=== PATIENT | male | born 1940 | race Caucasian/White ===

== ENCOUNTER 2020-06-29 16:17 | Inpatient (IN) | payer MEDICARE ==
[~2020-06-29] VITALS: Ht 180.3 cm; Wt 95.3 kg
[2020-06-29] MEDS ORDERED: DILTIAZEM HCL 5 MG/ML 5 ML VIAL IV STA ×2 (16:33→16:40)
[2020-06-29] MEDS ORDERED: DILTIAZEM HCL VIAL 5 ML ONE (16:39)
[2020-06-29] MEDS ORDERED: SODIUM CHLORIDE 0.9% 1000ML 1,000 ML ONE (16:40)
[2020-06-29] MEDS ORDERED: SODIUM CHLORIDE 0.9% 1000ML 1,000 ML IV ONE (16:45)
[2020-06-29] MEDS ORDERED: ASPIRIN 81 MG CHEW TAB PO ONE (16:45)
[2020-06-29 16:59] LABS: BASOPHILS # (AUTO) 0.1 (0.0-0.1); BASOPHILS % 0.9 % (0.0-1.0); EOSINOPHILS # (AUTO) 0.1 (0.0-0.4); EOSINOPHILS % 1.7 % (0.0-6.0); HEMATOCRIT 42.6 % (38.2-49.6); HEMOGLOBIN 13.7 g/dL (14.0-18.0); LYMPHOCYTES # (AUTO) 1.8 (1.0-3.2); MEAN CORPUSCULAR HEMOGLOBIN 26.4 pg (28-32); MEAN CORPUSCULAR HGB CONC 32.2 g/dL (31-35); MEAN CORPUSCULAR VOLUME 82.2 fL (81-99); MONOCYTES # (AUTO) 0.5 (0.2-0.8); MONOCYTES % 9.1 % (4.4-11.3); NEUTROPHILS % 54.9 % (38.7-80.0); PLATELET COUNT 277 x10e3/uL (140-360); RED BLOOD COUNT 5.18 x10e6/uL (4.3-5.7); RED CELL DISTRIBUTION WIDTH 14.4 % (11.7-14.4)
[2020-06-29 17:04] LABS: INR 1.15; PROTHROMBIN TIME 15.5 seconds (11.9-14.5)
[2020-06-29 17:14] LABS: ALBUMIN 4.1 g/dL (3.5-5.0); ALBUMIN/GLOBULIN RATIO 1.1 (0.8-2.0); ANION GAP 14.1 mmol/L (8-16); CALCIUM 9.3 mg/dL (8.4-10.2); CREATININE, SERUM 1.29 mg/dL (0.72-1.25); POTASSIUM 4.1 mmol/L (3.5-5.1)
[2020-06-29] MEDS ORDERED: RIVAROXABAN 20 MG TABLET PO SCH (17:15)
[2020-06-29] MEDS ORDERED: METOPROLOL TARTRATE INJ 1 MG/ML VIAL IV ONE (17:15)
[2020-06-29 17:20] LABS: CREATINE KINASE MB 2.4 ng/mL (0-5.0)
[2020-06-29] MEDS: METOPROLOL TARTRATE 50 MG TAB PO SCH (17:22)
[2020-06-29] MEDS ORDERED: ONDANSETRON HCL INJ 2MG/ML 2ML 2 MG/ML VIAL IV PRN (17:45)
[2020-06-29 21:15] LABS: CLARITY,URINE SL CLOUDY (CLEAR); COLOR,URINE YELLOW (YELLOW); KETONES,URINE NEGATIVE (NEGATIVE); LEUKOCYTE ESTERASE ,URINE NEGATIVE (NEGATIVE); NITRITE,URINE NEGATIVE (NEGATIVE); PROTEIN,URINE DIPSTICK NEGATIVE (NEGATIVE); URINE UROBILINOGEN 0.2 mg/dL (0.2 - 1)
[2020-06-29 22:40] VITALS: BP 135/97
[2020-06-29 23:27] VITALS: BP 135/97
[2020-06-30] VITALS (8 sets, daily range): BP systolic 125–148; BP diastolic 83–105
[2020-06-30] MEDS ORDERED: METOPROLOL SUCC25 MG PO (00:20)
[2020-06-30] MEDS ORDERED: SIMVASTATIN20 MG PO (00:20)
[2020-06-30] MEDS ORDERED: ISOSORBIDE MONO30 MG PO (00:20)
[2020-06-30] MEDS ORDERED: FISH OIL 500 M1 EAC1 PO (00:20)
[2020-06-30] MEDS ORDERED: CLOBETASOL PROP15 G1 TOP (00:21)
[2020-06-30] MEDS ORDERED: PROTONIX20 MG PO (00:21)
[2020-06-30 01:15] LABS: CREATINE KINASE MB 1.4 ng/mL (0-5.0)
[2020-06-30 06:35] LABS: CHOL/HDL RATIO 3.2 (3.9-4.7)
[2020-06-30 07:04] LABS: CREATINE KINASE MB 1.4 ng/mL (0-5.0)
[2020-06-30 07:33] LABS: CREATINE KINASE MB 1.4 ng/mL (0-5.0)
[2020-06-30] MEDS: METOPROLOL TARTRATE 50 MG TAB PO SCH ×2 (09:01→15:57)
[2020-06-30] MEDS ORDERED: SODIUM CHLORIDE FLUSH 10 ML SYR INJ PRN (11:00)
[2020-06-30] MEDS ORDERED: ZOLPIDEM TARTRATE 5 MG TAB PO PRN (11:15)
[2020-06-30] MEDS: PANTOPRAZOLE SOD 40 MG TABEC PO SCH (11:27)
[2020-07-01] VITALS (13 sets, daily range): BP systolic 115–141; BP diastolic 73–105
[2020-07-01 06:30] LABS: INR 1.27; PROTHROMBIN TIME 16.8 seconds (11.9-14.5)
[2020-07-01 06:31] LABS: PARTIAL THROMBOPLASTIN TIME 37.3 seconds (23.8-35.5)
[2020-07-01 06:39] LABS: ANION GAP 15.8 mmol/L (8-16); CALCIUM 9.1 mg/dL (8.4-10.2); CREATININE, SERUM 1.33 mg/dL (0.72-1.25); POTASSIUM 3.8 mmol/L (3.5-5.1)
[2020-07-01] MEDS: PANTOPRAZOLE SOD 40 MG TABEC PO SCH (07:20)
[2020-07-01] MEDS: METOPROLOL TARTRATE 50 MG TAB PO SCH ×3 (07:21→16:11)
[2020-07-01] MEDS ORDERED: DIPHENHYDRAMINE HCL INJ 50 MG/ML VIAL IV ONE (08:00)
[2020-07-01] MEDS ORDERED: HEPARIN SOD (PORCINE) 1000 UNIT/ML 30ML ONE (09:08)
[2020-07-01] MEDS ORDERED: MIDAZOLAM HCL 2 MG/2 ML VIAL ONE (09:08)
[2020-07-01] MEDS ORDERED: SODIUM CHLORIDE 0.9% 1000ML 1,000 ML ONE (09:09)
[2020-07-01] MEDS ORDERED: LIDOCAINE HCL 2% LOCAL 20 ML VIAL ONE ×2 (09:09→09:38)
[2020-07-01] MEDS ORDERED: HEPARIN SOD/SOD CHLORIDE 2,000 ML ONE (09:09)
[2020-07-01] MEDS ORDERED: IOPAMIDOL 370 MG/ML 200 ML INFUS..BTL INJ ONE ×2 (09:09→10:07)
[2020-07-01] MEDS ORDERED: NITROGLYCERIN/D5W 200 MCG/ML 250 ML ONE (09:09)
[2020-07-01] MEDS ORDERED: FENTANYL CITRATE/PF 100MCG/2 ML INJ ONE (09:09)
[2020-07-01] MEDS ORDERED: METOPROLOL TARTRATE INJ 1 MG/ML VIAL ONE (09:33)
[2020-07-01] MEDS ORDERED: DIGOXIN INJ 0.25 MG/ML 2 ML AMP ONE (09:50)
[2020-07-01] MEDS ORDERED: ACETAMINOPHEN 325 MG TAB PO PRN (10:30)
[2020-07-02] VITALS: BP 144/96
[2020-07-02 04:00] VITALS: BP 127/93
[2020-07-02 07:55] VITALS: BP 128/90
[2020-07-02 08:04] VITALS: BP 128/90
[2020-07-02] MEDS: PANTOPRAZOLE SOD 40 MG TABEC PO SCH (08:28)
[2020-07-02] MEDS: METOPROLOL TARTRATE 50 MG TAB PO SCH (08:29)
[2020-07-02] MEDS ORDERED: DIGOXIN125 MCG PO (09:07)
[2020-07-02] MEDS ORDERED: XARELTO20 MG PO (09:07)
[2020-07-02] MEDS ORDERED: METOPROLOL TART50 MG PO (09:07)
[2020-07-02] MEDS ORDERED: DIGOXIN 0.25 MG TAB PO ONE (09:15)
== END 2020-07-02 11:16 | disposition home or self-care (01) | DRG 286 ==
LOC: ER 16:27 → ERHOLD 17:45 → MED/SURG3 22:30 → INTOOBSV 07-01 13:39 → OBSVTOIN 07-01 13:39
PROVIDERS: ADMIT Internal Medicine Cardiovascular Disease; ATTEND Internal Medicine Cardiovascular Disease
PROC: 4A023N7 Measurement of Cardiac Sampling and Pressure, Left Heart, Percutaneous Approach (ICD-10-PCS; principal; 2020-07-01)
PROC: B2111ZZ Fluoroscopy of Multiple Coronary Arteries using Low Osmolar Contrast (ICD-10-PCS; 2020-07-01)
DX: I48.91 Unspecified atrial fibrillation (principal); I50.43 Acute on chronic combined systolic (congestive) and diastolic (congestive) heart failure; R00.0 Tachycardia, unspecified; I42.8 Other cardiomyopathies; I25.10 Atherosclerotic heart disease of native coronary artery without angina pectoris; Z20.822 Contact with and (suspected) exposure to COVID-19; I34.0 Nonrheumatic mitral (valve) insufficiency; I10 Essential (primary) hypertension; E78.5 Hyperlipidemia, unspecified; I11.0 Hypertensive heart disease with heart failure
CPT/HCPCS: 36415; 71045; 80048; 80053; 80061; 81001; 82550; 82553; 83880; 84484; 85025; 85610; 85730; 93005; 93460; 96361; 99152; 99153; 99285; C1751; C1766; C1769; C1887; G0378; J1160; J1200; J1644; J2001; J2250; J3010; J7030; Q9967; U0002

== ENCOUNTER 2021-09-13 00:29 | Observation (INO) | payer MEDICARE, OTHER ==
[~2021-09-13] VITALS: Ht 180.3 cm; Wt 95.3 kg
[~2021-09-13 00:29] MED LIST: CLOBETASOL PROP15 G1 TOP; DIGOXIN125 MCG PO; FISH OIL 500 M1 EAC1 PO; ISOSORBIDE MONO30 MG PO; METOPROLOL SUCC25 MG PO; METOPROLOL TART50 MG PO; PROTONIX20 MG PO; SIMVASTATIN20 MG PO; XARELTO20 MG PO
[2021-09-13] MEDS ORDERED: METOPROLOL TARTRATE INJ 1 MG/ML VIAL IV STA (00:34)
[2021-09-13] MEDS ORDERED: DIGOXIN INJ 0.25 MG/ML 2 ML AMP IV STA (00:34)
[2021-09-13] MEDS ORDERED: DILTIAZEM HCL 5 MG/ML 5 ML VIAL IV STA (00:34)
[2021-09-13 01:22] LABS: BASOPHILS # (AUTO) 0.1 (0.0-0.1); BASOPHILS % 0.9 % (0.0-1.0); EOSINOPHILS # (AUTO) 0.2 (0.0-0.4); EOSINOPHILS % 3.2 % (0.0-6.0); HEMATOCRIT 43.7 % (38.2-49.6); HEMOGLOBIN 14.3 g/dL (14.0-18.0); LYMPHOCYTES # (AUTO) 1.8 (1.0-3.2); LYMPHOCYTES % 26.2 % (18.0-39.1); MEAN CORPUSCULAR HEMOGLOBIN 28.7 pg (28-32); MEAN CORPUSCULAR HGB CONC 32.7 g/dL (31-35); MEAN CORPUSCULAR VOLUME 87.8 fL (81-99); MONOCYTES # (AUTO) 0.7 (0.2-0.8); MONOCYTES % 9.4 % (4.4-11.3); NEUTROPHILS # (AUTO) 4.2 (2.1-6.9); PLATELET COUNT 275 x10e3/uL (140-360); RED BLOOD COUNT 4.98 x10e6/uL (4.3-5.7); RED CELL DISTRIBUTION WIDTH 13.2 % (11.7-14.4)
[2021-09-13 01:36] LABS: ALBUMIN 3.8 g/dL (3.5-5.0); ALBUMIN/GLOBULIN RATIO 0.9 (0.8-2.0); ANION GAP 12.7 mmol/L (8-16); CALCIUM 9.6 mg/dL (8.4-10.2); CREATININE, SERUM 1.31 mg/dL (0.72-1.25); POTASSIUM 3.7 mmol/L (3.5-5.1)
[2021-09-13] MEDS ORDERED: ONDANSETRON HCL INJ 2MG/ML 2ML 2 MG/ML VIAL IV PRN (02:15)
[2021-09-13] MEDS ORDERED: Morphine 4mg INJECTION 4 MG/ML INJ IV PRN (02:15)
[2021-09-13] MEDS ORDERED: SODIUM CHLORIDE 0.9% 1000ML 1,000 ML IV SCH (02:15)
[2021-09-13 04:00] VITALS: BP 146/74
[2021-09-13 07:13] VITALS: BP 146/74
[2021-09-13 07:48] VITALS: BP 145/75
[2021-09-13] MEDS: METOPROLOL TARTRATE 50 MG TAB PO SCH ×2 (08:52→17:00)
[2021-09-13] MEDS ORDERED: ACETAMINOPHEN 325 MG TAB PO PRN (10:00)
[2021-09-13 11:38] LABS: CREATINE KINASE MB 2.7 ng/mL (0-5.0)
[2021-09-13 11:42] VITALS: BP 135/71
[2021-09-13 16:03] VITALS: BP 130/59
[2021-09-13] MEDS ORDERED: RIVAROXABAN 20 MG TABLET PO SCH (17:00)
[2021-09-13 19:47] LABS: CREATINE KINASE MB 2.2 ng/mL (0-5.0)
[2021-09-13 20:00] VITALS: BP 154/65
[2021-09-13] MEDS ORDERED: SIMVASTATIN 20 MG TAB PO SCH (21:00)
[2021-09-13] MEDS ORDERED: MELATONIN 5 MG TABLET PO PRN (21:00)
[2021-09-14] VITALS: BP 151/65
[2021-09-14 04:00] VITALS: BP 145/73
[2021-09-14 05:59] LABS: BASOPHILS # (AUTO) 0.1 (0.0-0.1); BASOPHILS % 0.9 % (0.0-1.0); EOSINOPHILS # (AUTO) 0.2 (0.0-0.4); EOSINOPHILS % 3.6 % (0.0-6.0); HEMATOCRIT 40.3 % (38.2-49.6); HEMOGLOBIN 13.2 g/dL (14.0-18.0); LYMPHOCYTES # (AUTO) 1.5 (1.0-3.2); LYMPHOCYTES % 27.4 % (18.0-39.1); MEAN CORPUSCULAR HEMOGLOBIN 28.9 pg (28-32); MEAN CORPUSCULAR HGB CONC 32.8 g/dL (31-35); MEAN CORPUSCULAR VOLUME 88.2 fL (81-99); MONOCYTES # (AUTO) 0.5 (0.2-0.8); MONOCYTES % 8.6 % (4.4-11.3); NEUTROPHILS # (AUTO) 3.2 (2.1-6.9); NEUTROPHILS % 59.3 % (38.7-80.0); PLATELET COUNT 192 x10e3/uL (140-360); RED BLOOD COUNT 4.57 x10e6/uL (4.3-5.7); RED CELL DISTRIBUTION WIDTH 13.4 % (11.7-14.4)
[2021-09-14 06:17] LABS: INR 1.72; PROTHROMBIN TIME 21.5 seconds (11.9-14.5)
[2021-09-14 06:18] LABS: PARTIAL THROMBOPLASTIN TIME 38.1 seconds (23.8-35.5)
[2021-09-14 06:25] LABS: ALBUMIN 3.3 g/dL (3.5-5.0); ANION GAP 10.9 mmol/L (8-16); CALCIUM 8.4 mg/dL (8.4-10.2); CREATININE, SERUM 1.12 mg/dL (0.72-1.25); POTASSIUM 3.9 mmol/L (3.5-5.1)
[2021-09-14 07:58] VITALS: BP 158/72
[2021-09-14] MEDS ORDERED: SODIUM CHLORIDE 0.9% 1000ML 1,000 ML ONE (08:50)
[2021-09-14] MEDS ORDERED: BENZOCAINE 20% SPR 60 ML CAN ONE (08:50)
[2021-09-14 09:16] VITALS: BP 105/48
[2021-09-14 09:30] VITALS: BP 92/52
[2021-09-14] MEDS ORDERED: AMLODIPINE BESYLATE 5 MG TAB PO SCH (09:30)
[2021-09-14 09:45] VITALS: BP 117/63
[2021-09-14] MEDS ORDERED: ASPIRIN 81 MG CHEW TAB PO SCH (09:45)
[2021-09-14] MEDS ORDERED: CLOPIDOGREL BISULFATE 75 MG TAB PO SCH (09:45)
[2021-09-14] MEDS ORDERED: ASPIRIN325 MG PO (09:54)
[2021-09-14] MEDS ORDERED: PLAVIX75 MG PO (09:54)
[2021-09-14] MEDS ORDERED: ONDANSETRON HCL 4 MG ORAL DISINTEGRATING TAB PO PRN (11:00)
[2021-09-14] MEDS ORDERED: FENTANYL CITRATE/PF 100MCG/2 ML INJ ONE (13:06)
[2021-09-14] MEDS ORDERED: MIDAZOLAM HCL 2 MG/2 ML VIAL ONE (13:06)
[2021-09-14] MEDS ORDERED: PROPOFOL IV EMULSION 10 MG/ML 20 ML VIAL ONE (13:52)
[2021-09-14] MEDS ORDERED: POVIDONE IODINE 0.05% 0.05 % ML PO ONE (13:52)
== END 2021-09-14 11:00 | disposition home or self-care (01) ==
LOC: ER 00:32 → ERHOLD 02:08 → MED/SURG 03:57
PROVIDERS: ADMIT Internal Medicine; ATTEND Internal Medicine
DX: I48.20 Chronic atrial fibrillation, unspecified (principal); Z79.01 Long term (current) use of anticoagulants; I12.9 Hypertensive chronic kidney disease with stage 1 through stage 4 chronic kidney disease, or unspecified chronic kidney disease; N18.30 Chronic kidney disease, stage 3 unspecified; E78.5 Hyperlipidemia, unspecified; K21.9 Gastro-esophageal reflux disease without esophagitis; Z20.822 Contact with and (suspected) exposure to COVID-19; I25.10 Atherosclerotic heart disease of native coronary artery without angina pectoris; Z95.5 Presence of coronary angioplasty implant and graft; Z95.818 Presence of other cardiac implants and grafts
CPT/HCPCS: 93320; C8925; 36415; 71045; 76770; 80053; 82550; 82553; 84484; 85025; 85610; 85730; 93005; 93306; 93307; 93312; 93325; 93355; 94799; 99284; G0378; J1160; J2250; J3010; J7030